=== PATIENT | female | born 1985 | race Caucasian/White ===

== ENCOUNTER 2022-12-30 13:19 | Outpatient (CLI) | payer BC, SELFPAY | END 2022-12-30 13:20 | disposition home or self-care (01) | LOC: FRMREF 13:19 | PROVIDERS: Visit Provider Registered Nurse | DX: Z01.419 Encounter for gynecological examination (general) (routine) without abnormal findings (principal); Z13.6 Encounter for screening for cardiovascular disorders; Z13.1 Encounter for screening for diabetes mellitus | CPT/HCPCS: 80061 ==

== ENCOUNTER 2024-05-03 10:40 | Outpatient (CLI) | payer BC, SELFPAY | END 2024-05-03 10:41 | disposition home or self-care (01) | LOC: NFLDREF 05-05 21:06 | PROVIDERS: Visit Provider Physician Assistant Medical | DX: Z13.228 Encounter for screening for other metabolic disorders (principal); Z13.220 Encounter for screening for lipoid disorders; Z13.29 Encounter for screening for other suspected endocrine disorder | CPT/HCPCS: 80053; 80061; 84443 ==

== ENCOUNTER 2024-09-12 14:46 | Outpatient (CLI) | payer BC, SELFPAY ==
--- NOTE | 2024-09-12 15:00 | CRLHL7_ITS ---
For Patients: As a result of the Cures Act, medical imaging exams and procedure reports are released immediately into your electronic medical record. You may view this report before your referring provider. If you have questions, please contact your health care provider. INDICATION: BILATERAL SCREENING MAMMOGRAM, ASYMPTOMATIC 39 Y/O FEMALE COMPARISON: BASELINE TECHNIQUE: Digital mammogram in CC and MLO projections including computer-aided detection (CAD) and tomosynthesis. BREAST COMPOSITION: The breasts are heterogeneously dense, which may obscure small masses. FINDINGS: No suspicious findings. ASSESSMENT: BI-RADS 1 Negative RECOMMENDATION: Annual screening mammogram. A lay language report of this examination will be provided to the patient. Dictated by: Radha East MD @ 09/13/2024 14:06:56 (Electronically Signed)
== END 2024-09-12 14:47 | disposition home or self-care (01) ==
LOC: MAMMO 14:46
PROVIDERS: PCP Physician Assistant Medical; Visit Provider Physician Assistant Medical
DX: Z12.31 Encounter for screening mammogram for malignant neoplasm of breast (principal); R92.333 Mammographic heterogeneous density, bilateral breasts
CPT/HCPCS: 77063; 77067